=== PATIENT | female | born 1990 | race American Indian/Alaskan Native ===

== ENCOUNTER 2019-01-26 14:15 | Emergency (ER) | payer MEDICAID ==
[2019-01-26 14:16] VITALS: BMI 47.0
[2019-01-26] MEDS ORDERED: Valproate 500 MG in Sodium Chloride 0.9% 100 ML IVPB ONE (14:48)
--- NOTE | 2019-01-26 15:03 | ED PDOC ---
HPI: Seizure Time Seen by Provider: 01/26/19 14:33 Chief Complaint (Nursing): Seizure Chief Complaint (Provider): Seizure History Per: Patient, Family () History/Exam Limitations: no limitations Recent Seizure Activity Began: Mins Ago: (x30) Additional Complaint(s): Patient is a 28 y/o female with a PMHx of seizures, TIA, atrial fibrillation, and hyperlipidemia who presents to the ED for evaluation of a seizure, witnessed by her and bystanders, 30 minutes prior to arrival. [place] experienced a seizure that lasted several seconds. The caught the patient before she fell, called for an ambulance, and sat the patient on a chair while she was in a post ictal state. Patient claims she used to take Depakote 300 mg daily, but she ran out and has been unable to renew her medication because she lost her insurance. Patient states she has not taken her medication in over two weeks and this was the first seizure she has experienced since her last dose of medication. PCP: None Provided Past Medical History Reviewed: Historical Data, Nursing Documentation, Vital Signs Vital Signs: Last Vital Signs Temp 98.3 F 01/26/19 14:17 Pulse 101 H 01/26/19 14:17 Resp 20 01/26/19 14:17 BP 126/83 01/26/19 14:17 Pulse Ox 99 01/26/19 14:17 - Medical History PMH: Atrial Fibrillation, Hyperlipidemia, Seizures, TIA - Surgical History Surgical History: No Surg Hx - Family History Family History: States: No Known Family Hx - Home Medications Home Medications: Ambulatory Orders Medication Instructions Recorded Aspirin [Ecotrin] 81 mg PO DAILY 01/26/19 Divalproex [Depakote DR(*BID*)] 300 mg PO BID 10 Days tcp 01/26/19 Divalproex [Depakote ER] 300 mg PO BID 01/26/19 - Allergies Allergies/Adverse Reactions: Allergies Allergy/AdvReac Type Severity Reaction Status Date / Time garlic Allergy RASH Verified 01/26/19 14:20 onion Allergy RASH Verified 01/26/19 14:20 seafood Allergy ANAPHYLAXIS Uncoded 01/26/19 14:20 Review of Systems ROS Statement: Except As Marked, All Systems Reviewed And Found Negative Neurological: Positive for: Seizures Physical Exam - Reviewed Nursing Documentation Reviewed: Yes Vital Signs Reviewed: Yes - Physical Exam Appears: Positive for: No Acute Distress (Obese) Head Exam: Positive for: ATRAUMATIC, NORMAL INSPECTION, NORMOCEPHALIC Skin: Positive for: Normal Color, Warm, DRY Eye Exam: Positive for: EOMI, Normal appearance, PERRL Neck: Positive for: Normal, Painless ROM, Supple Cardiovascular/Chest: Positive for: Regular Rate, Rhythm. Negative for: Murmur Respiratory: Positive for: Normal Breath Sounds. Negative for: Respiratory Distress Gastrointestinal/Abdominal: Positive for: Normal Exam, Soft. Negative for: Tenderness Back: Positive for: Normal Inspection. Negative for: L CVA Tenderness, R CVA Tenderness, Vertebral Tenderness Extremity: Positive for: Normal ROM. Negative for: Pedal Edema, Deformity Neurological/Psych: Positive for: Alert, Oriented (x3) - Laboratory Results Result Diagrams: 01/26/19 15:23 01/26/19 15:23 - ECG O2 Sat by Pulse Oximetry: 99 (RA) Pulse Ox Interpretation: Normal Medical Decision Making Medical Decision Making: Time: 1439 Impression: Recurrent Seizures Due to Noncompliance with Medication Plan: EKG Alcohol Serum BMP Drug Screen, Urine Magnesium Valproic Acid Urine Urine Dipstick CBC Glucose, POC Routine Depacon IV Insertion Time: 1500 Patient endorsed from provider to Main Lagunas MD. Pending labs and final disposition. Scribe Attestation: Documented by Martín Ngo, acting as a scribe Yair Ortez MD. Provider Scribe Attestation: All medical record entries made by the Scribe were at my direction and personally dictated by me. I have reviewed the chart and agree that the record accurately reflects my personal performance of the history, physical exam, med [facility] decision making, and the department course for this patient. I have also personally directed, reviewed, and agree with the discharge instructions and disposition. Disposition - Clinical Impression Clinical Impression: Seizure disorder - Patient ED Disposition Is Patient to be Admitted: Transfer of Care Counseled Patient/Family Regarding: Studies Performed, Diagnosis - Disposition Referrals: [facility] [Outside] - 01/28/19 Carin Finney MD [Medical Doctor] - 01/27/19 Disposition: Transfer of Care Disposition Time: 15:00 Condition: STABLE Additional Instructions: Return if not better in 3 days. Prescriptions: Divalproex [Depakote DR(*BID*)] 300 mg PO BID 10 Days tcp Instructions: Epilepsy in Adults Forms: [employer] (Indonesian), [facility] ED School/Work Excuse Patient Signed Over To: Main Lagunas
--- NOTE | 2019-01-26 15:23 | ED PDOC ---
- Laboratory Results Result Diagrams: 01/26/19 15:23 01/26/19 15:23 Interpretation Of Abn Labs: low depakote level - ECG ECG: Positive for: Interpreted By Me, Viewed By Me ECG Rhythm: Positive for: Normal QRS, Normal ST Segment, Sinus Rhythm O2 Sat by Pulse Oximetry: 99 (RA) Pulse Ox Interpretation: Normal - Progress ED Course And Treament: 1652: Stable. AAOx3. Pain free. Tolerated po. Will rx depakote. Ambulated with no issues. Medical Decision Making Medical Decision Making: Time: 1500 Patient endorsed to provider from Maria G Ortez MD. Pending labs and final disposition. ---- Scribe Attestation: Documented by Martín Ngo, acting as a scribe for Main Lagunas MD. Provider Scribe Attestation: All medical record entries made by the Scribe were at my direction and personally dictated by me. I have reviewed the chart and agree that the record accurately reflects my personal performance of the history, physical exam, medical decision making, and the department course for this patient. I have also personally directed, reviewed, and agree with the discharge instructions and disposition. Disposition Counseled Patient/Family Regarding: Studies Performed, Diagnosis, Need For Followup, Rx Given - Clinical Impression Clinical Impression: Seizure disorder - POA Present On Arrival: None - Disposition Referrals: Carin Finney MD [Medical Doctor] - 01/27/19 [facility] [Outside] - 01/28/19 Disposition: Routine/Home Disposition Time: 15:00 Condition: STABLE Additional Instructions: Return if not better in 3 days. Prescriptions: Divalproex [Depakote DR(*BID*)] 300 mg PO BID 10 Days tcp Instructions: Epilepsy in Adults Forms: [employer] (Romanian), [facility] ED School/Work Excuse
[2019-01-26 15:30] LABS: BASO # 0.1 K/uL (0.0-0.2); BASO % 0.7 % (0.0-2.0); EOS # 0.2 K/uL (0.0-0.7); HEMOGLOBIN 10.7 g/dL (12.0-16.0); LYMPH % 19.4 % (20.0-40.0); MEAN CORPUSCULAR HEMOGLOBIN 22.5 pg (27.0-31.0); MEAN CORPUSCULAR HGB CONC 31.2 g/dL (33.0-37.0); MONO # 0.4 K/uL (0.0-0.8); MONO % 3.9 % (0.0-10.0); NEUT # 7.7 K/uL (1.8-7.0); NRBC % 0.1 % (0.0-0.0); RBC 4.78 Mil/uL (3.80-5.20); RED CELL DISTRIBUTION WIDTH 16.8 % (11.5-14.5); WHITE BLOOD COUNT 10.5 K/uL (4.8-10.8)
[2019-01-26 15:39] LABS: BARBITURATES, UR NEGATIVE (NEGATIVE); BENZODIAZEPINES, UR NEGATIVE (NEGATIVE); OPIATES, UR NEGATIVE (NEGATIVE); PHENCYCLIDINE, UR NEGATIVE (NEGATIVE)
[2019-01-26 15:40] LABS: BLOOD UREA NITROGEN 14 mg/dl (7-17); GFR NON-AFRICAN AMERICAN > 60
[2019-01-26 17:10] VITALS: BP 124/80; PULSE 87; RESP 21; TEMP 97.6
[2019-01-26 17:26] VITALS: O2SAT 99
--- NOTE | 2019-01-26 21:15 | CARD ---
APPROVED REPORT Date of service: 01/26/2019 EKG Measurement Heart [id number] <Conclusion> Normal sinus rhythm Normal ECG
== END 2019-01-26 17:17 | disposition home or self-care (01) ==
LOC: H.ER 14:15
DX: G40.909 Epilepsy, unspecified, not intractable, without status epilepticus (principal); E78.5 Hyperlipidemia, unspecified; Z79.899 Other long term (current) drug therapy; Z86.73 Personal history of transient ischemic attack (TIA), and cerebral infarction without residual deficits; Z91.14 Patient's other noncompliance with medication regimen; I48.91 Unspecified atrial fibrillation